=== PATIENT | female | born 1945 | race Caucasian/White ===

== ENCOUNTER 2016-08-06 04:07 | Emergency (ER) | payer BC, MEDICARE ==
[2016-08-06] MEDS ORDERED: ONDANSETRON ODT 4 MG TAB.RAPDIS ONE (04:47)
--- NOTE | 2016-08-06 05:41 | ER NURSING DOCUMENTATION ---
Nurse's Notes [facility] Name:Danni Bowen Age:71 yrs Sex:Female :1945 Arrival Date:08/06/2016 Time:04:07 Bed4 Private MD:Louie Siegel Diagnosis:Constipation Presentation: 08/06 04:15 Acuity: EVIE 3 rh 04:20 Presenting complaint: Patient states: Pt c/o abdominal cramping in lower abdomen. Pt rh states that on Wednesday she had diarrhea from finishing up an antibiotic course and took some imodium. Pt has not had a bowel movement since Wednesday and less gas than normal. Transition of care: Home. 04:20 Method Of Arrival: Private Vehicle Triage Assessment: 04:22 General: Appears in no apparent distress, Behavior is cooperative. Pain: Complains of rh pain in right lower quadrant and left lower quadrant Quality of pain is described as crampy. EENT: Oral mucosa is dry. Neuro: Level of Consciousness is awake, alert, obeys commands. Cardiovascular: Capillary refill < 3 seconds. Respiratory: Airway is patent Respiratory effort is even, unlabored. GI: Abdomen is non- distended Abdomen is tender to palpation Reports lower abdominal pain, constipation, cramping, Denies diarrhea, nausea, vomiting. : Reports Decreased urine output. Derm: Skin is intact, is healthy with good turgor, Skin is pink, warm & dry. Historical: - Allergies: Atarax; - Home Meds: 1. Colace oral 2. Patient couldn't recall all of her home medications, forgot list at home - PMHx: Unable to obtain; - PSHx: Cholecysectomy; - Tetanus: < 10 years. - Ebola Screening: : Patient negative for fever greater than or equal to 101.5 degrees Fahrenheit, and additional compatible Ebola Virus Disease symptoms. - Immunization history: Pneumococcal vaccine is up to date, Flu Vaccine < 1 year. - Social history: Smoking status: Patient states was never smoker of tobacco. Screenin:24 Infectious Disease Risk None. Abuse screen: Denies threats or abuse. Denies injuries rh from another. Nutritional screening: No deficits noted. Assessment: 04:23 See Triage Assessment done by same RN. 05:09 Reassessment: Pt had large bowel movement of formed stool, patient states she feels rh relief and her cramping has improved. . 05:25 Reassessment: Second enema produces large loose stool, patient had continued relief of rh her cramping and states she is feeling much better. . Vital Signs: 04:23 BP 167 / 81; Pulse 82; Resp 17; Temp 98.2(O); Pulse Ox 96% on R/A; Weight 65.77 kg; rh Height 5 ft. 6 in. (167.64 cm); Pain 8/10; 05:40 BP 145 / 82; Pulse 73; Resp 16; Pulse Ox 96% on R/A; Pain 2/10; rh 04:23 Body Mass Index 23.40 (65.77 kg, 167.64 cm) ED Course: 04:11 Patient arrived in ED. [facility] 04:11 Louie Siegel MD is Private Physician. [facility] 04:14 Karlee Nuñez is Primary Nurse. rh 04:15 Triage completed. rh 04:24 Valuables Remains with patient Patient has correct armband on for positive rh identification. Placed in gown. Bed in low position. Call light in reach. Side rails up X 1. Family accompanied patient. 04:35 Daniel Taylor MD is Attending Physician. 04:42 Louie Siegel MD is Referral Physician. 05:00 Soap suds enema given. Patient tolerated well. 05:15 Soap suds enema given. Patient tolerated well. rh Administered Medications: 04:36 Drug: Zofran 4 mg; Route: PO; rh 05:08 Follow up: Response: Nausea is decreased Point of Care Testing: Urine Dip: 04:31 pH: 5.5; ; Specific [place]: 1.020; Ketones: Small; Glucose: Negative; Protein: rh Negative; Leukocytes: Negative; Nitrite: Negative ; Blood: Non Hemolyzed Trace; Bilirubin: Negative ; Urobilinogen: Normal Output: 05:09 Stool: 1 (Formed Stool) ; Total: 0ml. rh 05:18 Stool: 1 (Loose Stool) ; Total: 0ml. Outcome: 04:42 Discharge ordered by . 05:40 Discharged to home ambulatory, with significant other. 05:40 Condition: improved 05:40 Discharge Assessment: Patient awake, alert and oriented x 3. No cognitive and/or functional deficits noted. Patient verbalized understanding of disposition instructions. 05:40 Discharge instructions given to patient, significant other, Instructed on discharge instructions, follow up and referral plans. Demonstrated understanding of instructions. 05:40 Patient left the ED. Signatures: Danile Taylor MD MD jm Hofsess, Rachel Bailee Britton
--- NOTE | 2016-08-06 05:41 | ER PHYSICIAN DOCUMENTATION ---
Physician Documentation [facility] Name:Danni Bowen Age:71 yrs Sex:Female :1945 Arrival Date:08/06/2016 Time:04:07 Bed4 Private MD:Louie Siegel EDireneDaniel Disposition: 08/06/16 04:42 Discharged to Home/Self Care. Impression: Constipation. - Condition is Good. - Discharge Instructions: CONSTIPATION (Adult). - Medical Reconciliation form form. - Follow up: Louie Siegel MD; When: As needed; Reason: Continuance of care. - Problem is new. - Symptoms have improved. HPI: 08/06 05:00 This 71 yrs old Female presents to ER via Private Vehicle with complaints of jm Abdominal Pain. 05:00 The patient presents with abdominal pain constipation, the patient has not had a bowel jm movement for 4days. Severity of pain: in the emergency department the pain is unchanged. Pt had diarrhea over last weekend and needed to take Imodium, but now she has constipation. Pt w hx of IBS. . Historical: - Allergies: Atarax; - Home Meds: 1. Colace oral 2. Patient couldn't recall all of her home medications, forgot list at home - PMHx: Unable to obtain; - PSHx: Cholecysectomy; - Tetanus: < 10 years. - Ebola Screening: : Patient negative for fever greater than or equal to 101.5 degrees Fahrenheit, and additional compatible Ebola Virus Disease symptoms. - Immunization history: Pneumococcal vaccine is up to date, Flu Vaccine < 1 year. - Social history: Smoking status: Patient states was never smoker of tobacco. ROS: 11:40 Abdomen/GI: Positive for constipation, abdominal cramps, Negative for nausea, vomiting. jm 11:40 Neuro: Negative for headache, weakness. Exam: 11:40 Constitutional: The patient appears alert, awake. jm 11:40 Abdomen/GI: Inspection: distension, is not seen, Bowel sounds: diminished, in all quadrants, Palpation: mild abdominal tenderness, in all quadrants. 11:40 Psych: Behavior/mood is pleasant, cooperative, Affect is calm. Vital Signs: 04:23 BP 167 / 81; Pulse 82; Resp 17; Temp 98.2(O); Pulse Ox 96% on R/A; Weight 65.77 kg; rh Height 5 ft. 6 in. (167.64 cm); Pain 8/10; 05:40 BP 145 / 82; Pulse 73; Resp 16; Pulse Ox 96% on R/A; Pain 2/10; rh 04:23 Body Mass Index 23.40 (65.77 kg, 167.64 cm) MDM: 04:35 Patient medically screened. 11:42 Differential diagnosis: Irritable bowel syndrome, constipation. Data reviewed: vital jm signs, nurses notes, and as a result, I will discharge patient. Counseling: I had a detailed discussion with the patient and/or guardian regarding: the historical points, exam findings, and any diagnostic results supporting the discharge/admit diagnosis, the need for outpatient follow up, with the patient's primary care provider. Response to treatment: the patient's symptoms have resolved after treatment. ED course: Pt felt much relief after enema. DC home. . 08/06 04:31 Order name: Urine Dip; Complete Time: 04:31 08/06 04:42 Order name: Enema: Soap Suds; Complete Time: 05:08 08/06 05:37 Order name: Enema: Soap Suds; Complete Time: 05:37 Dispensed Medications: 04:36 Drug: Zofran 4 mg; Route: PO; 05:08 Follow up: Response: Nausea is decreased Point of Care Testing: Urine Dip: 04:31 pH: 5.5; ; Specific [place]: 1.020; Ketones: Small; Glucose: Negative; Protein: rh Negative; Leukocytes: Negative; Nitrite: Negative ; Blood: Non Hemolyzed Trace; Bilirubin: Negative ; Urobilinogen: Normal Signatures: Daniel Taylor MD MD jm Hofsess, Rachel
== END 2016-08-06 05:41 | disposition home or self-care (01) ==
LOC: ER 04:07
DX: K59.00 Constipation, unspecified (principal); R10.84 Generalized abdominal pain; Z79.899 Other long term (current) drug therapy
CPT/HCPCS: 99283; 99284